=== PATIENT | female | born 1995 | race Caucasian/White ===

== ENCOUNTER 2017-07-29 17:32 | Emergency (ER) | payer OTHER ==
[~2017-07-29] VITALS: Ht 160 cm; Wt 70.5 kg
[~2017-07-29 17:32] MED LIST: BACTDS PO
[2017-07-29 17:55] VITALS: Ht 160 cm; Wt 70.5 kg
[2017-07-29] MEDS ORDERED: KETOROLAC 30 MG INJ IV STA (20:20)
--- NOTE | 2017-07-29 20:57 | RADRPT ---
PROCEDURE: US Pelvis Transabdominal and Transvaginal. CLINICAL INDICATION: Pelvic pain. TECHNIQUE: Multiple sonographic images of the pelvis were obtained utilizing driver scale, Doppler a nd color flow imaging with transabdominal and endovaginal technique. The images were reviewed on a PACS workstation. COMPARISON: None. FINDINGS: The uterus is visualized and measures 9.5 x 4.9 x 6.9 cm. The endometrial echo complex measures 12.8 mm in thickness. Echogenic IUD is seen in the endometrial canal. Small amount of free fluid is seen in the endometrial canal. A few small Nabothian cysts are seen in the cervix. No uterine masses are identified. The right ovary measures 4.3 x 2.0 x 2.9 cm . The left ovary is not well visualized. The right ova ry demonstrates a normal echogenicity and vascularity. A few follicles are seen on the right ovary. Small amount of free fluid is seen in the cul-de-sac. IMPRESSION: Echogenic IUD in the endometrial canal. Small amount of nonspecific free fluid in the endometrial canal. This fluid could be related to mens es. Small Nabothian cysts in the cervix. Small amount of nonspecific free fluid in the cul-de-sac. This could be physiologic. Left ovary not well visualized. If characterization of this structure is needed repeat exam or MRI i s recommended. If further characterization of the organs of the pelvis is needed MRI should be considered. RPTAT: AA .Lele Mc MD, MD Date Time Electronically viewed and signed by .Lele Mc MD, MD on 07/29/2017 20:57 .P/
--- NOTE | 2017-07-29 21:26 | RADRPT ---
PROCEDURE: CT Abdomen and Pelvis without contrast CLINICAL INDICATION: Abdominal and back pain TECHNIQUE: Transaxial images were obtained through the abdomen and pelvis on a multi-slice scanner without the intravenous contrast administration. No oral contrast had previously been given. Sagit michelet and coronal re-formations were subsequently reconstructed. One or more of the following dose reduction techniques were used: - Automated exposure control. - Adjustment of the mA and/or kV according to patient size. - Use of iterative reconstruction technique. Radiation dose: CTDIvol = 11.96 mGy; DLP = 652.03 mGy-cm. COMPARISON: Comparison to the pelvic sonogram done earlier on the same date. The previous sonogram demonstrated an IUD within the endometrial canal along with a small amount of endometrial fluid. The left ovary was not adequately visualized and there is a trace of fluid in the cul-de-sac. FINDINGS: Lung bases: The visualized lung bases appear unremarkable. Liver: The liver is upper normal in size with no focal lesion identified. Gallbladder: The wall is not thickened. No radiopaque stones are identified. Bile ducts: The intra and extrahepatic bile ducts are normal in caliber. Pancreas: Appears normal with no mass or inflammation evident. Spleen: The spleen is borderline enlarged. Adrenals: Normal with no mass identified. Kidneys, ureters and bladder: The kidneys are normal in size and there is no mass, pathological calc ification, or hydronephrosis evident. There is no perinephric stranding. The ureters are normal in c aliber and no ureteroliths are identified. The bladder is suboptimally distended. Reproductive organs: An IUD is seen within the uterus. No adnexal mass is identified. Stomach and bowel: The stomach is mildly distended with food debris. Substantial stool is seen in th e right colon but there is no evidence of bowel obstruction or inflammation. Appendix: A normal vermiform appendix is evident. Peritoneum: There is a trace of free intraperitoneal fluid seen in the cul-de-sac. No free air is ev ident. Aorta: Normal in caliber with no aneurysmal dilatation. IVC: Unremarkable. Lymph nodes: No pathologically enlarged nodes are identified. Osseous structures: The osseous elements appear intact. IMPRESSION: 1. The stomach is mildly distended with food debris and substantial stool seen in the right colon b ut there is no evidence of bowel obstruction or inflammation and a normal vermiform appendix is evid ent. 2. There is no evidence of urinary outflow obstruction or ureterolithiasis. The bladder is suboptim ally distended. 3. An IUD is seen within the uterus and no adnexal mass is evident. 4. There is a trace amount of free fluid in the cul-de-sac but no free air is evident. 5. The liver is upper normal in size and the spleen is borderline enlarged with no focal lesion. Physician Shannon Date Time Electronically viewed and signed by Physician Shannon on 07/29/2017 21:25 RH/
[2017-07-29] MEDS ORDERED: ACET500C5 PO (22:27)
[2017-07-29] MEDS ORDERED: CIPR500T4 PO (22:27)
[2017-07-29] MEDS ORDERED: FER325 PO (22:30)
[2017-07-29] MEDS ORDERED: HYDROCODONE/APAP (5/325) TAB PO ONE (22:30)
[2017-07-29] MEDS ORDERED: CIPROFLOXACIN 500 MG TAB PO ONE (22:30)
[2017-07-29 22:50] VITALS: BP 114/57; PULSE 72; RESP 20
--- NOTE | 2017-07-29 23:25 | ERD ---
ER Documentation Chief Complaint Chief Complaint back pain x 2 days HPI 21-year-old female patient with no significant past medical history presents to the ED complaining of 2 days ago. Reports that she has worsening right lower quadrant abdominal pain. Patient complains of lower back pain and dysuria. Denies any chest pain, shortness of breath, nausea, vomiting, diarrhea. Denies any dysuria, urgency, frequency. ROS All systems reviewed and are negative except as per history of present illness. Medications Home Meds Active Scripts Ferrous Sulfate* (Ferrous Sulfate*) 325 Mg Tabec, 325 MG PO BID, #60 TAB Prov:ALEKSANDAR LANCASTER PA-C 07/29/17 Acetaminophen* (Tylophen*) 500 Mg Capsule, 1 CAP PO Q6H Y for PAIN AND OR ELEVATED TEMP, #20 CAP Prov:ALEKSANDAR LANCASTER PA-C 07/29/17 Ciprofloxacin Hcl* (Ciprofloxacin Hcl*) 500 Mg Tablet, 500 MG PO BID for 7 Days , TAB Prov:ALEKSANDAR LANCASTER PA-C 07/29/17 Sulfamethoxazole-Trimethoprim* (Bactrim* DS) 800-160 Mg Tab, 1 TAB PO BID for 7 Days, TAB Prov:FAIZAN VILLAFANA PA-C 03/30/15 Allergies Allergies: Coded Allergies: cephalexin (Verified Allergy, Unknown, 01/03/15) PMhx/Soc Medical and Surgical Hx: pt denies Medical Hx History of Surgery: Yes ( x 2) Anesthesia Reaction: No Hx Neurological Disorder: No Hx Respiratory Disorders: No Hx Cardiac Disorders: No Hx Psychiatric Problems: No Hx Miscellaneous Medical Probl: No Hx Alcohol Use: No Hx Substance Use: No Hx Tobacco Use: No Physical Exam Vitals Vital Signs Date Time Temp Pulse Resp B/P Pulse Ox O2 Delivery O2 Flow Rate FiO2 07/29/17 22:50 72 20 114/57 99 Room Air 07/29/17 17:55 98.8 111 16 120/60 98 Physical Exam Const: [id number], well-nourished. In no acute distress. Head: Atraumatic, normocephalic Eyes: Normal Conjunctiva without injection. No purulent discharge. ENT: Normal external ear, nose. Moist oropharynx without tonsillar exudates. Non -erythematous pharynx. Uvula midline. No drooling. No trismus. Neck: No cervical midline tenderness. Full range of motion. No meningismus. No cervical lymphadenopathy. No JVD. Resp: Clear to auscultation bilaterally. No wheezing, rhonchi, rales, or crackles. No accessory muscle use. No retractions. Cardio: Regular rate and rhythm. No murmurs, rubs or gallops. Abd: Soft, right lower quadrant abdominal pain, non distended. Normal bowel sounds. No palpable masses. No rebound tenderness. No guarding. Negative McBurney's point. Negative psoas sign. Negative obturator sign. Skin: No petechiae or rashes Back: No midline tenderness. No CVA tenderness. Ext: No cyanosis, or edema. Neur: Awake and alert. Normal gait. Normal coordination. Psych: Normal Mood and Affect Results 24 hrs Laboratory Tests Test 07/29/17 20:50 07/29/17 20:58 Urine Color YELLOW Urine Clarity CLOUDY Urine pH 6.0 Urine Specific [place] 1.023 Urine Ketones NEGATIVEmg/dL Urine Nitrite POSITIVEmg/dL Urine Bilirubin NEGATIVEmg/dL Urine Urobilinogen 1+mg/dL Urine Leukocyte Esterase TRACELeu/ul Urine Microscopic RBC 1/HPF Urine Microscopic WBC 18/HPF Urine Squamous Epithelial Cells FEW/HPF Urine Bacteria FEW/HPF Urine Mucus FEW/HPF Urine Hemoglobin NEGATIVEmg/dL Urine Glucose NEGATIVEmg/dL Urine Total Protein NEGATIVEmg/dl White Blood Count 8.910^3/ul Red Blood Count 3.9410^6/ul Hemoglobin 9.4g/dl Hematocrit 31.9% Mean Corpuscular Volume 81.0fl Mean Corpuscular Hemoglobin 23.9pg Mean Corpuscular Hemoglobin Concent 29.5g/dl Red Cell Distribution Width 16.1% Platelet Count 35954^3/UL Mean Platelet Volume 12.9fl Neutrophils % 71.4% Lymphocytes % 19.5% Monocytes % 7.9% Eosinophils % 0.7% Basophils % 0.3% Nucleated Red Blood Cells % 0.0/100WBC Neutrophils # 6.310^3/ul Lymphocytes # 1.710^3/ul Monocytes # 0.710^3/ul Eosinophils # 0.110^3/ul Basophils # 0.010^3/ul Nucleated Red Blood Cells # 0.010^3/ul Sodium Level 141mmol/L Potassium Level 3.8mmol/L Chloride Level 103mmol/L Carbon Dioxide Level 26mmol/L Anion Gap 16 Blood Urea Nitrogen 13mg/dl Creatinine 0.80mg/dl Glucose Level 89mg/dl Calcium Level 9.0mg/dl Total Bilirubin 0.2mg/dl Direct Bilirubin 0.00mg/dl Indirect Bilirubin 0.2mg/dl Aspartate Amino Transf (AST/SGOT) 28IU/L Alanine Aminotransferase (ALT/SGPT) 39IU/L Alkaline Phosphatase 98IU/L Total Protein 7.6g/dl Albumin 4.6g/dl Globulin 3.00g/dl Albumin/Globulin Ratio 1.53 Lipase 262U/L Current Medications Medications (Trade) Dose Ordered Sig/Cata Route PRN Reason Start Time Stop Time Status Last Admin Dose Admin Ketorolac Tromethamine (Toradol) 30 mg ONCE STAT IV 07/29/17 20:20 07/29/17 20:23 DC 07/29/17 20:57 Ciprofloxacin (Cipro) 500 mg ONCE ONCE PO 07/29/17 22:30 07/29/17 22:32 DC 07/29/17 22:46 Acetaminophen/ Hydrocodone Bitart ([place] (5/325)) 1 tab ONCE ONCE PO 07/29/17 22:30 07/29/17 22:32 DC 07/29/17 22:46 Procedures/MDM 31-year-old female patient with no significant past medical history presents to the ED complaining of back pain and right lower quadrant abdominal pain. Patient is afebrile and nontoxic-appearing. Patient has normal vital signs. Patient was further worked up with CBC, CMP, lipase, UA, pelvic ultrasound and CT of the abdomen and pelvis without contrast. Patient's pain and symptoms have improved after treatment with 30 mg IV Ketoralac. CBC: No leukocytosis. No e/o of systemic infection. No e/o anemia. Hbg 9.4 CMP: No e/o severe acidosis, alkalosis, renal failure, diabetic ketoacidosis, liver disease Lipase within normal limits. Urine: No leukocyte esterase, positive nitrite, no hematuria. Urine : negative PROCEDURE: US Pelvis Transabdominal and Transvaginal. CLINICAL INDICATION: Pelvic pain. TECHNIQUE: Multiple sonographic images of the pelvis were obtained utilizing driver scale, Doppler and color flow imaging with transabdominal and endovaginal technique. The images were reviewed on a PACS workstation. COMPARISON: None. FINDINGS: The uterus is visualized and measures 9.5 x 4.9 x 6.9 cm. The endometrial echo complex measures 12.8 mm in thickness. Echogenic IUD is seen in the endometrial canal. Small amount of free fluid is seen in the endometrial canal. A few small Nabothian cysts are seen in the cervix. No uterine masses are identified. The right ovary measures 4.3 x 2.0 x 2.9 cm . The left ovary is not well visualized. The right ovary demonstrates a normal echogenicity and vascularity. A few follicles are seen on the right ovary. Small amount of free fluid is seen in the cul-de-sac. IMPRESSION: Echogenic IUD in the endometrial canal. Small amount of nonspecific free fluid in the endometrial canal. This fluid could be related to menses. Small Nabothian cysts in the cervix. Small amount of nonspecific free fluid in the cul-de-sac. This could be physiologic. Left ovary not well visualized. If characterization of this structure is needed repeat exam or MRI is recommended. If further characterization of the organs of the pelvis is needed MRI should be considered. PROCEDURE: CT Abdomen and Pelvis without contrast CLINICAL INDICATION: Abdominal and back pain TECHNIQUE: Transaxial images were obtained through the abdomen and pelvis on a multi-slice scanner without the intravenous contrast administration. No oral contrast had previously been given. Sagittal and coronal re-formations were subsequently reconstructed. One or more of the following dose reduction techniques were used: - Automated exposure control. - Adjustment of the mA and/or kV according to patient size. - Use of iterative reconstruction technique. Radiation dose: CTDIvol = 11.96 mGy; DLP = 652.03 mGy-cm. COMPARISON: Comparison to the pelvic sonogram done earlier on the same date. The previous sonogram demonstrated an IUD within the endometrial canal along with a small amount of endometrial fluid. The left ovary was not adequately visualized and there is a trace of fluid in the cul-de-sac. FINDINGS: Lung bases: The visualized lung bases appear unremarkable. Liver: The liver is upper normal in size with no focal lesion identified. Gallbladder: The wall is not thickened. No radiopaque stones are identified. Bile ducts: The intra and extrahepatic bile ducts are normal in caliber. Pancreas: Appears normal with no mass or inflammation evident. Spleen: The spleen is borderline enlarged. Adrenals: Normal with no mass identified. Kidneys, ureters and bladder: The kidneys are normal in size and there is no mass, pathological calcification, or hydronephrosis evident. There is no perinephric stranding. The ureters are normal in caliber and no ureteroliths are identified. The bladder is suboptimally distended. Reproductive organs: An IUD is seen within the uterus. No adnexal mass is identified. Stomach and bowel: The stomach is mildly distended with food debris. Substantial stool is seen in the right colon but there is no evidence of bowel obstruction or inflammation. Appendix: A normal vermiform appendix is evident. Peritoneum: There is a trace of free intraperitoneal fluid seen in the cul-de- sac. No free air is evident. Aorta: Normal in caliber with no aneurysmal dilatation. IVC: Unremarkable. Lymph nodes: No pathologically enlarged nodes are identified. Osseous structures: The osseous elements appear intact. IMPRESSION: 1. The stomach is mildly distended with food debris and substantial stool seen in the right colon but there is no evidence of bowel obstruction or inflammation and a normal vermiform appendix is evident. 2. There is no evidence of urinary outflow obstruction or ureterolithiasis. The bladder is suboptimally distended. 3. An IUD is seen within the uterus and no adnexal mass is evident. 4. There is a trace amount of free fluid in the cul-de-sac but no free air is evident. 5. The liver is upper normal in size and the spleen is borderline enlarged with no focal lesion. Low suspicion for ectopic , ovarian torsion, gastritis, GERD, peptic ulcer disease, cholecystitis, choledocholithiasis, cholangitis, pancreatitis, appendicitis, bowel obstruction, ileus, volvulus, nephrolithiasis, pyelonephritis, hepatitis, perforated viscus, diverticulitis, strangulated/ incarcerated hernia, DKA, acute abdomen, mesenteric ischemia or other emergent conditions. 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 Instructed patient to return to the ED sooner for any worsening symptoms. Patient's questions were answered. Patient understood and agreed with discharge plan. Patient discharged stable. Departure Diagnosis: Primary Impression: Flank pain Additional Impression: Abdominal pain Abdominal location: unspecified location Qualified Code: R10.9 - Abdominal pain, unspecified abdominal location Condition: Stable Patient Instructions: Abdominal Pain, Pyelonephritis, Anemia, Type Not Specified (Adult) [facility]errals: [facility] YOU HAVE RECEIVED A MEDICAL SCREENING EXAM AND THE RESULTS INDICATE THAT YOU DO NOT HAVE A CONDITION THAT REQUIRES URGENT TREATMENT IN THE EMERGENCY DEPARTMENT. FURTHER EVALUATION AND TREATMENT OF YOUR CONDITION CAN WAIT UNTIL YOU ARE SEEN IN YOUR DOCTORS OFFICE WITHIN THE NEXT 1-2 DAYS. IT IS YOUR RESPONSIBILITY TO MAKE AN APPOINTMENT FOR FOLOW-UP CARE. IF YOU HAVE A PRIMARY DOCTOR --you should call your primary doctor and schedule an appointment IF YOU DO NOT HAVE A PRIMARY DOCTOR YOU CAN CALL OUR PHYSICIAN REFERRAL HOTLINE AT IF YOU CAN NOT AFFORD TO SEE A PHYSICIAN YOU CAN CHOSE FROM THE FOLLOWING [facility] [address] [facility] [address] [facility] [address] [facility] [address] [facility] [address] [facility] [address] [facility]. [facility] [address] [facility] [address] [facility] YOU HAVE RECEIVED A MEDICAL SCREENING EXAM AND THE RESULTS INDICATE THAT YOU DO NOT HAVE A CONDITION THAT REQUIRES URGENT TREATMENT IN THE EMERGENCY DEPARTMENT. FURTHER EVALUATION AND TREATMENT OF YOUR CONDITION CAN WAIT UNTIL YOU ARE SEEN IN YOUR DOCTORS OFFICE WITHIN THE NEXT 1-2 DAYS. IT IS YOUR RESPONSIBILITY TO MAKE AN APPOINTMENT FOR FOLOW-UP CARE. IF YOU HAVE A PRIMARY DOCTOR --you should call your primary doctor and schedule and appointment IF YOU DO NOT HAVE A PRIMARY DOCTOR YOU CAN CALL OUR PHYSICIAN REFERRAL HOTLINE AT . IF YOU CAN NOT AFFORD TO SEE A PHYSICIAN YOU CAN CHOSE FROM THE FOLLOWING [facility]: [facility] [address] [place] [address] [facility] [address] [place] [address] [facility] [address] [place] [address] [facility] Additional Instructions: Call your primary care doctor TOMORROW for an appointment during the next 2-3 days.See the doctor sooner or return here if your condition worsens before your appointment time. ALEKSANDAR LANCASTER PA-C Jul 29, 2017 23:25 days.See the doctor sooner or return here if your condition worsens before your appointment time. ALEKSANDAR LANCASTER PA-C Jul 29, 2017 23:25
--- NOTE | 2017-07-29 23:25 | ERD ---
ER Documentation Chief Complaint Chief Complaint back pain x 2 days HPI 21-year-old female patient with no significant past medical history presents to the ED complaining of 2 days ago. Reports that she has worsening right lower quadrant abdominal pain. Patient complains of lower back pain and dysuria. Denies any chest pain, shortness of breath, nausea, vomiting, diarrhea. Denies any dysuria, urgency, frequency. ROS All systems reviewed and are negative except as per history of present illness. Medications Home Meds Active Scripts Ferrous Sulfate* (Ferrous Sulfate*) 325 Mg Tabec, 325 MG PO BID, #60 TAB Prov:ALEKSANDAR LANCASTER PA-C 07/29/17 Acetaminophen* (Tylophen*) 500 Mg Capsule, 1 CAP PO Q6H Y for PAIN AND OR ELEVATED TEMP, #20 CAP Prov:ALEKSANDAR LANCASTER PA-C 07/29/17 Ciprofloxacin Hcl* (Ciprofloxacin Hcl*) 500 Mg Tablet, 500 MG PO BID for 7 Days , TAB Prov:ALEKSANDAR LANCASTER PA-C 07/29/17 Sulfamethoxazole-Trimethoprim* (Bactrim* DS) 800-160 Mg Tab, 1 TAB PO BID for 7 Days, TAB Prov:FAIZAN VILLAFANA PA-C 03/30/15 Allergies Allergies: Coded Allergies: cephalexin (Verified Allergy, Unknown, 01/03/15) PMhx/Soc Medical and Surgical Hx: pt denies Medical Hx History of Surgery: Yes ( x 2) Anesthesia Reaction: No Hx Neurological Disorder: No Hx Respiratory Disorders: No Hx Cardiac Disorders: No Hx Psychiatric Problems: No Hx Miscellaneous Medical Probl: No Hx Alcohol Use: No Hx Substance Use: No Hx Tobacco Use: No Physical Exam Vitals Vital Signs Date Time Temp Pulse Resp B/P Pulse Ox O2 Delivery O2 Flow Rate FiO2 07/29/17 22:50 72 20 114/57 99 Room Air 07/29/17 17:55 98.8 111 16 120/60 98 Physical Exam Const: [id number], well-nourished. In no acute distress. Head: Atraumatic, normocephalic Eyes: Normal Conjunctiva without injection. No purulent discharge. ENT: Normal external ear, nose. Moist oropharynx without tonsillar exudates. Non -erythematous pharynx. Uvula midline. No drooling. No trismus. Neck: No cervical midline tenderness. Full range of motion. No meningismus. No cervical lymphadenopathy. No JVD. Resp: Clear to auscultation bilaterally. No wheezing, rhonchi, rales, or crackles. No accessory muscle use. No retractions. Cardio: Regular rate and rhythm. No murmurs, rubs or gallops. Abd: Soft, right lower quadrant abdominal pain, non distended. Normal bowel sounds. No palpable masses. No rebound tenderness. No guarding. Negative McBurney's point. Negative psoas sign. Negative obturator sign. Skin: No petechiae or rashes Back: No midline tenderness. No CVA tenderness. Ext: No cyanosis, or edema. Neur: Awake and alert. Normal gait. Normal coordination. Psych: Normal Mood and Affect Results 24 hrs Laboratory Tests Test 07/29/17 20:50 07/29/17 20:58 Urine Color YELLOW Urine Clarity CLOUDY Urine pH 6.0 Urine Specific [place] 1.023 Urine Ketones NEGATIVEmg/dL Urine Nitrite POSITIVEmg/dL Urine Bilirubin NEGATIVEmg/dL Urine Urobilinogen 1+mg/dL Urine Leukocyte Esterase TRACELeu/ul Urine Microscopic RBC 1/HPF Urine Microscopic WBC 18/HPF Urine Squamous Epithelial Cells FEW/HPF Urine Bacteria FEW/HPF Urine Mucus FEW/HPF Urine Hemoglobin NEGATIVEmg/dL Urine Glucose NEGATIVEmg/dL Urine Total Protein NEGATIVEmg/dl White Blood Count 8.910^3/ul Red Blood Count 3.9410^6/ul Hemoglobin 9.4g/dl Hematocrit 31.9% Mean Corpuscular Volume 81.0fl Mean Corpuscular Hemoglobin 23.9pg Mean Corpuscular Hemoglobin Concent 29.5g/dl Red Cell Distribution Width 16.1% Platelet Count 31651^3/UL Mean Platelet Volume 12.9fl Neutrophils % 71.4% Lymphocytes % 19.5% Monocytes % 7.9% Eosinophils % 0.7% Basophils % 0.3% Nucleated Red Blood Cells % 0.0/100WBC Neutrophils # 6.310^3/ul Lymphocytes # 1.710^3/ul Monocytes # 0.710^3/ul Eosinophils # 0.110^3/ul Basophils # 0.010^3/ul Nucleated Red Blood Cells # 0.010^3/ul Sodium Level 141mmol/L Potassium Level 3.8mmol/L Chloride Level 103mmol/L Carbon Dioxide Level 26mmol/L Anion Gap 16 Blood Urea Nitrogen 13mg/dl Creatinine 0.80mg/dl Glucose Level 89mg/dl Calcium Level 9.0mg/dl Total Bilirubin 0.2mg/dl Direct Bilirubin 0.00mg/dl Indirect Bilirubin 0.2mg/dl Aspartate Amino Transf (AST/SGOT) 28IU/L Alanine Aminotransferase (ALT/SGPT) 39IU/L Alkaline Phosphatase 98IU/L Total Protein 7.6g/dl Albumin 4.6g/dl Globulin 3.00g/dl Albumin/Globulin Ratio 1.53 Lipase 262U/L Current Medications Medications (Trade) Dose Ordered Sig/Cata Route PRN Reason Start Time Stop Time Status Last Admin Dose Admin Ketorolac Tromethamine (Toradol) 30 mg ONCE STAT IV 07/29/17 20:20 07/29/17 20:23 DC 07/29/17 20:57 Ciprofloxacin (Cipro) 500 mg ONCE ONCE PO 07/29/17 22:30 07/29/17 22:32 DC 07/29/17 22:46 Acetaminophen/ Hydrocodone Bitart ([place] (5/325)) 1 tab ONCE ONCE PO 07/29/17 22:30 07/29/17 22:32 DC 07/29/17 22:46 Procedures/MDM 31-year-old female patient with no significant past medical history presents to the ED complaining of back pain and right lower quadrant abdominal pain. Patient is afebrile and nontoxic-appearing. Patient has normal vital signs. Patient was further worked up with CBC, CMP, lipase, UA, pelvic ultrasound and CT of the abdomen and pelvis without contrast. Patient's pain and symptoms have improved after treatment with 30 mg IV Ketoralac. CBC: No leukocytosis. No e/o of systemic infection. No e/o anemia. Hbg 9.4 CMP: No e/o severe acidosis, alkalosis, renal failure, diabetic ketoacidosis, liver disease Lipase within normal limits. Urine: No leukocyte esterase, positive nitrite, no hematuria. Urine : negative PROCEDURE: US Pelvis Transabdominal and Transvaginal. CLINICAL INDICATION: Pelvic pain. TECHNIQUE: Multiple sonographic images of the pelvis were obtained utilizing driver scale, Doppler and color flow imaging with transabdominal and endovaginal technique. The images were reviewed on a PACS workstation. COMPARISON: None. FINDINGS: The uterus is visualized and measures 9.5 x 4.9 x 6.9 cm. The endometrial echo complex measures 12.8 mm in thickness. Echogenic IUD is seen in the endometrial canal. Small amount of free fluid is seen in the endometrial canal. A few small Nabothian cysts are seen in the cervix. No uterine masses are identified. The right ovary measures 4.3 x 2.0 x 2.9 cm . The left ovary is not well visualized. The right ovary demonstrates a normal echogenicity and vascularity. A few follicles are seen on the right ovary. Small amount of free fluid is seen in the cul-de-sac. IMPRESSION: Echogenic IUD in the endometrial canal. Small amount of nonspecific free fluid in the endometrial canal. This fluid could be related to menses. Small Nabothian cysts in the cervix. Small amount of nonspecific free fluid in the cul-de-sac. This could be physiologic. Left ovary not well visualized. If characterization of this structure is needed repeat exam or MRI is recommended. If further characterization of the organs of the pelvis is needed MRI should be considered. PROCEDURE: CT Abdomen and Pelvis without contrast CLINICAL INDICATION: Abdominal and back pain TECHNIQUE: Transaxial images were obtained through the abdomen and pelvis on a multi-slice scanner without the intravenous contrast administration. No oral contrast had previously been given. Sagittal and coronal re-formations were subsequently reconstructed. One or more of the following dose reduction techniques were used: - Automated exposure control. - Adjustment of the mA and/or kV according to patient size. - Use of iterative reconstruction technique. Radiation dose: CTDIvol = 11.96 mGy; DLP = 652.03 mGy-cm. COMPARISON: Comparison to the pelvic sonogram done earlier on the same date. The previous sonogram demonstrated an IUD within the endometrial canal along with a small amount of endometrial fluid. The left ovary was not adequately visualized and there is a trace of fluid in the cul-de-sac. FINDINGS: Lung bases: The visualized lung bases appear unremarkable. Liver: The liver is upper normal in size with no focal lesion identified. Gallbladder: The wall is not thickened. No radiopaque stones are identified. Bile ducts: The intra and extrahepatic bile ducts are normal in caliber. Pancreas: Appears normal with no mass or inflammation evident. Spleen: The spleen is borderline enlarged. Adrenals: Normal with no mass identified. Kidneys, ureters and bladder: The kidneys are normal in size and there is no mass, pathological calcification, or hydronephrosis evident. There is no perinephric stranding. The ureters are normal in caliber and no ureteroliths are identified. The bladder is suboptimally distended. Reproductive organs: An IUD is seen within the uterus. No adnexal mass is identified. Stomach and bowel: The stomach is mildly distended with food debris. Substantial stool is seen in the right colon but there is no evidence of bowel obstruction or inflammation. Appendix: A normal vermiform appendix is evident. Peritoneum: There is a trace of free intraperitoneal fluid seen in the cul-de- sac. No free air is evident. Aorta: Normal in caliber with no aneurysmal dilatation. IVC: Unremarkable. Lymph nodes: No pathologically enlarged nodes are identified. Osseous structures: The osseous elements appear intact. IMPRESSION: 1. The stomach is mildly distended with food debris and substantial stool seen in the right colon but there is no evidence of bowel obstruction or inflammation and a normal vermiform appendix is evident. 2. There is no evidence of urinary outflow obstruction or ureterolithiasis. The bladder is suboptimally distended. 3. An IUD is seen within the uterus and no adnexal mass is evident. 4. There is a trace amount of free fluid in the cul-de-sac but no free air is evident. 5. The liver is upper normal in size and the spleen is borderline enlarged with no focal lesion. Low suspicion for ectopic , ovarian torsion, gastritis, GERD, peptic ulcer disease, cholecystitis, choledocholithiasis, cholangitis, pancreatitis, appendicitis, bowel obstruction, ileus, volvulus, nephrolithiasis, pyelonephritis, hepatitis, perforated viscus, diverticulitis, strangulated/ incarcerated hernia, DKA, acute abdomen, mesenteric ischemia or other emergent conditions. Discharge medications: Ferrous sulfate, Tylenol, Ciprofloxacin Follow up with primary care physician in 1-2 days for referral to port captain. Instructed patient to return to the ED sooner for any worsening symptoms. Patient's questions were answered. Patient understood and agreed with discharge plan. Patient discharged stable. Departure Diagnosis: Primary Impression: Flank pain Additional Impression: Abdominal pain Abdominal location: unspecified location Qualified Code: R10.9 - Abdominal pain, unspecified abdominal location Condition: Stable Patient Instructions: Abdominal Pain, Pyelonephritis, Anemia, Type Not Specified (Adult) Referrals: [facility] YOU HAVE RECEIVED A MEDICAL SCREENING EXAM AND THE RESULTS INDICATE THAT YOU DO NOT HAVE A CONDITION THAT REQUIRES URGENT TREATMENT IN THE EMERGENCY DEPARTMENT. FURTHER EVALUATION AND TREATMENT OF YOUR CONDITION CAN WAIT UNTIL YOU ARE SEEN IN YOUR DOCTORS OFFICE WITHIN THE NEXT 1-2 DAYS. IT IS YOUR RESPONSIBILITY TO MAKE AN APPOINTMENT FOR FOLOW-UP CARE. IF YOU HAVE A PRIMARY DOCTOR --you should call your primary doctor and schedule an appointment IF YOU DO NOT HAVE A PRIMARY DOCTOR YOU CAN CALL OUR PHYSICIAN REFERRAL HOTLINE AT IF YOU CAN NOT AFFORD TO SEE A PHYSICIAN YOU CAN CHOSE FROM THE FOLLOWING [facility] [address] [facility] [address] [facility]. [facility] [address] [facility] [address] [facility] [address] [facility] [facility] [address] [facility] [facility] YOU HAVE RECEIVED A MEDICAL SCREENING EXAM AND THE RESULTS INDICATE THAT YOU DO NOT HAVE A CONDITION THAT REQUIRES URGENT TREATMENT IN THE EMERGENCY DEPARTMENT. FURTHER EVALUATION AND TREATMENT OF YOUR CONDITION CAN WAIT UNTIL YOU ARE SEEN IN YOUR DOCTORS OFFICE WITHIN THE NEXT 1-2 DAYS. IT IS YOUR RESPONSIBILITY TO MAKE AN APPOINTMENT FOR FOLOW-UP CARE. IF YOU HAVE A PRIMARY DOCTOR --you should call your primary doctor and schedule and appointment IF YOU DO NOT HAVE A PRIMARY DOCTOR YOU CAN CALL OUR PHYSICIAN REFERRAL HOTLINE AT . IF YOU CAN NOT AFFORD TO SEE A PHYSICIAN YOU CAN CHOSE FROM THE FOLLOWING [facility]: [facility] [address] [place] [address] [facility] [address] [place] [address] [facility] [address] [place] [address] [facility] URGENT CARE/SPECIALTIES Additional Instructions: Call your primary care doctor TOMORROW for an appointment during the next 2-3 days.See the doctor sooner or return here if your condition worsens before your appointment time. ALEKSANDAR LANCASTER PA-C Jul 29, 2017 23:25 days.See the doctor sooner or return here if your condition worsens before your appointment time. ALEKSANDAR LANCASTER PA-C Jul 29, 2017 23:25
--- NOTE | 2017-07-29 23:25 | ERD ---
ER Documentation Chief Complaint Chief Complaint back pain x 2 days HPI 21-year-old female patient with no significant past medical history presents to the ED complaining of 2 days ago. Reports that she has worsening right lower quadrant abdominal pain. Patient complains of lower back pain and dysuria. Denies any chest pain, shortness of breath, nausea, vomiting, diarrhea. Denies any dysuria, urgency, frequency. ROS All systems reviewed and are negative except as per history of present illness. Medications Home Meds Active Scripts Ferrous Sulfate* (Ferrous Sulfate*) 325 Mg Tabec, 325 MG PO BID, #60 TAB Prov:ALEKSANDAR LANCASTER PA-C 07/29/17 Acetaminophen* (Tylophen*) 500 Mg Capsule, 1 CAP PO Q6H Y for PAIN AND OR ELEVATED TEMP, #20 CAP Prov:ALEKSANDAR LANCASTER PA-C 07/29/17 Ciprofloxacin Hcl* (Ciprofloxacin Hcl*) 500 Mg Tablet, 500 MG PO BID for 7 Days , TAB Prov:ALEKSANDAR LANCASTER PA-C 07/29/17 Sulfamethoxazole-Trimethoprim* (Bactrim* DS) 800-160 Mg Tab, 1 TAB PO BID for 7 Days, TAB Prov:FAIZAN VILLAFANA PA-C 03/30/15 Allergies Allergies: Coded Allergies: cephalexin (Verified Allergy, Unknown, 01/03/15) PMhx/Soc Medical and Surgical Hx: pt denies Medical Hx History of Surgery: Yes ( x 2) Anesthesia Reaction: No Hx Neurological Disorder: No Hx Respiratory Disorders: No Hx Cardiac Disorders: No Hx Psychiatric Problems: No Hx Miscellaneous Medical Probl: No Hx Alcohol Use: No Hx Substance Use: No Hx Tobacco Use: No Physical Exam Vitals Vital Signs Date Time Temp Pulse Resp B/P Pulse Ox O2 Delivery O2 Flow Rate FiO2 07/29/17 22:50 72 20 114/57 99 Room Air 07/29/17 17:55 98.8 111 16 120/60 98 Physical Exam Const: [id number], well-nourished. In no acute distress. Head: Atraumatic, normocephalic Eyes: Normal Conjunctiva without injection. No purulent discharge. ENT: Normal external ear, nose. Moist oropharynx without tonsillar exudates. Non -erythematous pharynx. Uvula midline. No drooling. No trismus. Neck: No cervical midline tenderness. Full range of motion. No meningismus. No cervical lymphadenopathy. No JVD. Resp: Clear to auscultation bilaterally. No wheezing, rhonchi, rales, or crackles. No accessory muscle use. No retractions. Cardio: Regular rate and rhythm. No murmurs, rubs or gallops. Abd: Soft, right lower quadrant abdominal pain, non distended. Normal bowel sounds. No palpable masses. No rebound tenderness. No guarding. Negative McBurney's point. Negative psoas sign. Negative obturator sign. Skin: No petechiae or rashes Back: No midline tenderness. No CVA tenderness. Ext: No cyanosis, or edema. Neur: Awake and alert. Normal gait. Normal coordination. Psych: Normal Mood and Affect Results 24 hrs Laboratory Tests Test 07/29/17 20:50 07/29/17 20:58 Urine Color YELLOW Urine Clarity CLOUDY Urine pH 6.0 Urine Specific [place] 1.023 Urine Ketones NEGATIVEmg/dL Urine Nitrite POSITIVEmg/dL Urine Bilirubin NEGATIVEmg/dL Urine Urobilinogen 1+mg/dL Urine Leukocyte Esterase TRACELeu/ul Urine Microscopic RBC 1/HPF Urine Microscopic WBC 18/HPF Urine Squamous Epithelial Cells FEW/HPF Urine Bacteria FEW/HPF Urine Mucus FEW/HPF Urine Hemoglobin NEGATIVEmg/dL Urine Glucose NEGATIVEmg/dL Urine Total Protein NEGATIVEmg/dl White Blood Count 8.910^3/ul Red Blood Count 3.9410^6/ul Hemoglobin 9.4g/dl Hematocrit 31.9% Mean Corpuscular Volume 81.0fl Mean Corpuscular Hemoglobin 23.9pg Mean Corpuscular Hemoglobin Concent 29.5g/dl Red Cell Distribution Width 16.1% Platelet Count 29186^3/UL Mean Platelet Volume 12.9fl Neutrophils % 71.4% Lymphocytes % 19.5% Monocytes % 7.9% Eosinophils % 0.7% Basophils % 0.3% Nucleated Red Blood Cells % 0.0/100WBC Neutrophils # 6.310^3/ul Lymphocytes # 1.710^3/ul Monocytes # 0.710^3/ul Eosinophils # 0.110^3/ul Basophils # 0.010^3/ul Nucleated Red Blood Cells # 0.010^3/ul Sodium Level 141mmol/L Potassium Level 3.8mmol/L Chloride Level 103mmol/L Carbon Dioxide Level 26mmol/L Anion Gap 16 Blood Urea Nitrogen 13mg/dl Creatinine 0.80mg/dl Glucose Level 89mg/dl Calcium Level 9.0mg/dl Total Bilirubin 0.2mg/dl Direct Bilirubin 0.00mg/dl Indirect Bilirubin 0.2mg/dl Aspartate Amino Transf (AST/SGOT) 28IU/L Alanine Aminotransferase (ALT/SGPT) 39IU/L Alkaline Phosphatase 98IU/L Total Protein 7.6g/dl Albumin 4.6g/dl Globulin 3.00g/dl Albumin/Globulin Ratio 1.53 Lipase 262U/L Current Medications Medications (Trade) Dose Ordered Sig/Cata Route PRN Reason Start Time Stop Time Status Last Admin Dose Admin Ketorolac Tromethamine (Toradol) 30 mg ONCE STAT IV 07/29/17 20:20 07/29/17 20:23 DC 07/29/17 20:57 Ciprofloxacin (Cipro) 500 mg ONCE ONCE PO 07/29/17 22:30 07/29/17 22:32 DC 07/29/17 22:46 Acetaminophen/ Hydrocodone Bitart ([place] (5/325)) 1 tab ONCE ONCE PO 07/29/17 22:30 07/29/17 22:32 DC 07/29/17 22:46 Procedures/MDM 31-year-old female patient with no significant past medical history presents to the ED complaining of back pain and right lower quadrant abdominal pain. Patient is afebrile and nontoxic-appearing. Patient has normal vital signs. Patient was further worked up with CBC, CMP, lipase, UA, pelvic ultrasound and CT of the abdomen and pelvis without contrast. Patient's pain and symptoms have improved after treatment with 30 mg IV Ketoralac. CBC: No leukocytosis. No e/o of systemic infection. No e/o anemia. Hbg 9.4 CMP: No e/o severe acidosis, alkalosis, renal failure, diabetic ketoacidosis, liver disease Lipase within normal limits. Urine: No leukocyte esterase, positive nitrite, no hematuria. Urine : negative PROCEDURE: US Pelvis Transabdominal and Transvaginal. CLINICAL INDICATION: Pelvic pain. TECHNIQUE: Multiple sonographic images of the pelvis were obtained utilizing driver scale, Doppler and color flow imaging with transabdominal and endovaginal technique. The images were reviewed on a PACS workstation. COMPARISON: None. FINDINGS: The uterus is visualized and measures 9.5 x 4.9 x 6.9 cm. The endometrial echo complex measures 12.8 mm in thickness. Echogenic IUD is seen in the endometrial canal. Small amount of free fluid is seen in the endometrial canal. A few small Nabothian cysts are seen in the cervix. No uterine masses are identified. The right ovary measures 4.3 x 2.0 x 2.9 cm . The left ovary is not well visualized. The right ovary demonstrates a normal echogenicity and vascularity. A few follicles are seen on the right ovary. Small amount of free fluid is seen in the cul-de-sac. IMPRESSION: Echogenic IUD in the endometrial canal. Small amount of nonspecific free fluid in the endometrial canal. This fluid could be related to menses. Small Nabothian cysts in the cervix. Small amount of nonspecific free fluid in the cul-de-sac. This could be physiologic. Left ovary not well visualized. If characterization of this structure is needed repeat exam or MRI is recommended. If further characterization of the organs of the pelvis is needed MRI should be considered. PROCEDURE: CT Abdomen and Pelvis without contrast CLINICAL INDICATION: Abdominal and back pain TECHNIQUE: Transaxial images were obtained through the abdomen and pelvis on a multi-slice scanner without the intravenous contrast administration. No oral contrast had previously been given. Sagittal and coronal re-formations were subsequently reconstructed. One or more of the following dose reduction techniques were used: - Automated exposure control. - Adjustment of the mA and/or kV according to patient size. - Use of iterative reconstruction technique. Radiation dose: CTDIvol = 11.96 mGy; DLP = 652.03 mGy-cm. COMPARISON: Comparison to the pelvic sonogram done earlier on the same date. The previous sonogram demonstrated an IUD within the endometrial canal along with a small amount of endometrial fluid. The left ovary was not adequately visualized and there is a trace of fluid in the cul-de-sac. FINDINGS: Lung bases: The visualized lung bases appear unremarkable. Liver: The liver is upper normal in size with no focal lesion identified. Gallbladder: The wall is not thickened. No radiopaque stones are identified. Bile ducts: The intra and extrahepatic bile ducts are normal in caliber. Pancreas: Appears normal with no mass or inflammation evident. Spleen: The spleen is borderline enlarged. Adrenals: Normal with no mass identified. Kidneys, ureters and bladder: The kidneys are normal in size and there is no mass, pathological calcification, or hydronephrosis evident. There is no perinephric stranding. The ureters are normal in caliber and no ureteroliths are identified. The bladder is suboptimally distended. Reproductive organs: An IUD is seen within the uterus. No adnexal mass is identified. Stomach and bowel: The stomach is mildly distended with food debris. Substantial stool is seen in the right colon but there is no evidence of bowel obstruction or inflammation. Appendix: A normal vermiform appendix is evident. Peritoneum: There is a trace of free intraperitoneal fluid seen in the cul-de- sac. No free air is evident. Aorta: Normal in caliber with no aneurysmal dilatation. IVC: Unremarkable. Lymph nodes: No pathologically enlarged nodes are identified. Osseous structures: The osseous elements appear intact. IMPRESSION: 1. The stomach is mildly distended with food debris and substantial stool seen in the right colon but there is no evidence of bowel obstruction or inflammation and a normal vermiform appendix is evident. 2. There is no evidence of urinary outflow obstruction or ureterolithiasis. The bladder is suboptimally distended. 3. An IUD is seen within the uterus and no adnexal mass is evident. 4. There is a trace amount of free fluid in the cul-de-sac but no free air is evident. 5. The liver is upper normal in size and the spleen is borderline enlarged with no focal lesion. Low suspicion for ectopic , ovarian torsion, gastritis, GERD, peptic ulcer disease, cholecystitis, choledocholithiasis, cholangitis, pancreatitis, appendicitis, bowel obstruction, ileus, volvulus, nephrolithiasis, pyelonephritis, hepatitis, perforated viscus, diverticulitis, strangulated/ incarcerated hernia, DKA, acute abdomen, mesenteric ischemia or other emergent conditions. Discharge medications: Ferrous sulfate, Tylenol, Ciprofloxacin Follow up with primary care physician in 1-2 days for referral to overnight associate. Instructed patient to return to the ED sooner for any worsening symptoms. Patient's questions were answered. Patient understood and agreed with discharge plan. Patient discharged stable. Departure Diagnosis: Primary Impression: Flank pain Additional Impression: Abdominal pain Abdominal location: unspecified location Qualified Code: R10.9 - Abdominal pain, unspecified abdominal location Condition: Stable Patient Instructions: Abdominal Pain, Pyelonephritis, Anemia, Type Not Specified (Adult) Referrals: [facility] YOU HAVE RECEIVED A MEDICAL SCREENING EXAM AND THE RESULTS INDICATE THAT YOU DO NOT HAVE A CONDITION THAT REQUIRES URGENT TREATMENT IN THE EMERGENCY DEPARTMENT. FURTHER EVALUATION AND TREATMENT OF YOUR CONDITION CAN WAIT UNTIL YOU ARE SEEN IN YOUR DOCTORS OFFICE WITHIN THE NEXT 1-2 DAYS. IT IS YOUR RESPONSIBILITY TO MAKE AN APPOINTMENT FOR FOLOW-UP CARE. IF YOU HAVE A PRIMARY DOCTOR --you should call your primary doctor and schedule an appointment IF YOU DO NOT HAVE A PRIMARY DOCTOR YOU CAN CALL OUR PHYSICIAN REFERRAL HOTLINE AT IF YOU CAN NOT AFFORD TO SEE A PHYSICIAN YOU CAN CHOSE FROM THE FOLLOWING [facility] [address] [facility] [address] [facility] [facility] [address] [facility] [address] [facility] [address] [facility] [facility] [address] [facility]. [facility] YOU HAVE RECEIVED A MEDICAL SCREENING EXAM AND THE RESULTS INDICATE THAT YOU DO NOT HAVE A CONDITION THAT REQUIRES URGENT TREATMENT IN THE EMERGENCY DEPARTMENT. FURTHER EVALUATION AND TREATMENT OF YOUR CONDITION CAN WAIT UNTIL YOU ARE SEEN IN YOUR DOCTORS OFFICE WITHIN THE NEXT 1-2 DAYS. IT IS YOUR RESPONSIBILITY TO MAKE AN APPOINTMENT FOR FOLOW-UP CARE. IF YOU HAVE A PRIMARY DOCTOR --you should call your primary doctor and schedule and appointment IF YOU DO NOT HAVE A PRIMARY DOCTOR YOU CAN CALL OUR PHYSICIAN REFERRAL HOTLINE AT . IF YOU CAN NOT AFFORD TO SEE A PHYSICIAN YOU CAN CHOSE FROM THE FOLLOWING [facility]: [facility] [address] [place] [address] [facility] [address] [place] [address] [facility] + [facility] [address] [place] [address] [facility] URGENT [facility]/SPECIALTIES Additional Instructions: Call your primary care doctor TOMORROW for an appointment during the next 2-3 days.See the doctor sooner or return here if your condition worsens before your appointment time. ALEKSANDAR LANCASTER PA-C Jul 29, 2017 23:25 days.See the doctor sooner or return here if your condition worsens before your appointment time. ALEKSANDAR LANCASTER PA-C Jul 29, 2017 23:25
== END 2017-07-29 22:51 | disposition home or self-care (01) ==
LOC: FTE 17:32
DX: R10.31 Right lower quadrant pain (principal)
CPT/HCPCS: 36415; 74176; 76830; 76856; 80053; 81001; 83690; 85025; 87086; 96374; J1885; Z7502; Z7610